=== PATIENT | female | born 2000 | race Caucasian/White ===

== ENCOUNTER → 2025-05-03 14:48 | Outpatient (BNVA) | payer BC, SELFPAY | PROVIDERS: PCP Nurse Practitioner Family; Visit Provider Nurse Practitioner Family | DX: R31.9 Hematuria, unspecified (principal); N92.6 Irregular menstruation, unspecified; Z87.448 Personal history of other diseases of urinary system | CPT/HCPCS: 80053; 81000; 85025 ==